=== PATIENT | female | born 1980 | race American Indian/Alaskan Native ===

== ENCOUNTER 2016-06-26 16:19 | Emergency (ER) | payer SELFPAY ==
[2016-06-26 16:42] VITALS: BP 107/74
[2016-06-26 18:49] LABS: Bacteria,Urine 1+ /HPF (Negative); Bilirubin,Urine NEG (Negative); Blood,Urine MOD (Negative); Ketones,Urine NEG (Negative); Leukocyte Esterase,Urine LG (Negative); Mucus,Urine FEW /HPF; Nitrite,Urine NEG (Negative); Urobilinogen,Urine < 2.0 mg/dL (<2.0)
[2016-06-26 18:53] LABS: WBC,Urine > 182.0 /HPF (0.0-6.0)
--- NOTE | 2016-06-26 20:00 | Emergency Department Report ---
ED Female HPI - General Chief complaint: Urogenital-Female Stated complaint: SOB/ABD PAIN/FLU SYMPTOMS Time Seen by Provider: 06/26/16 19:38 Source: patient Mode of arrival: Ambulatory Limitations: No Limitations - History of Present Illness Initial comments: Patient here reports that she's been having fever or chills 2 days. Complaining I sensitive to light and she has body ache all over. She is complaining of left lower abdominal pain on and off 3 days and burning at the end of urinating. Denies any blood in her urine. She said her urine has a smell. She is not presently having any pain in her lower abdomen but she said when she has pain is 5 out of 10 and it comes and goes and feels like pressure. She says she took some Advil prior to coming to the emergency room. Denies any nausea vomiting or diarrhea. Denies any back pain. She did not take her temperature she says she had chills and felt feverish. MD Complaint: dysuria, other (pressure to left lower quadrant abdomen) Onset/Timin -: days(s) Location: LLQ Radiation: non-radiating Severity: mild Severity scale (0 -10): 5 Consistency: intermittent Improves with: none Worsens with: urination Are you Now?: No Associated Symptoms: fever/chills, dysuria. denies: vaginal discharge, vaginal bleeding, abdominal pain, nausea/vomiting, headaches, loss of appetite, hematuria, shortness of breath, syncope, weakness - Related Data Sexually active: Yes Previous Rx's Medication Instructions Recorded Last Taken Type Nitrofurantoin [place]/M-Cryst 100 mg PO Q12HR #14 capsule 06/26/16 Unknown Rx [Macrobid CAP] Phenazopyridine [Pyridium] 100 mg PO TID PRN #9 tab 06/26/16 Unknown Rx Allergies Allergy/AdvReac Type Severity Reaction Status Date / Time No Known Allergies Allergy Unverified 06/26/16 16:44 ED Review of Systems ROS: Stated complaint: SOB/ABD PAIN/FLU SYMPTOMS Other details as noted in HPI Comment: All other systems reviewed and negative Constitutional: chills, fever ENT: denies: ear pain, throat pain, congestion Respiratory: no symptoms reported Cardiovascular: denies: chest pain, palpitations Gastrointestinal: abdominal pain. denies: nausea, vomiting, diarrhea, constipation, hematemesis Genitourinary: dysuria. denies: urgency, frequency, hematuria, discharge, abnormal menses Musculoskeletal: other (body aches). denies: back pain, arthralgia, myalgia Skin: denies: rash Neurological: denies: headache, weakness, numbness, paresthesias, confusion, abnormal gait, vertigo ED Past Medical Hx - Past Medical History Previous Medical History?: No - Surgical History Past Surgical History?: No - Family History Family history: hypertension - Social History Smoking Status: Current Every Day Smoker Substance Use Type: Alcohol - Medications Home Medications: Home Medications Medication Instructions Recorded Confirmed Last Taken Type Nitrofurantoin [place]/M-Cryst 100 mg PO Q12HR #14 capsule 06/26/16 Unknown Rx [Macrobid CAP] Phenazopyridine [Pyridium] 100 mg PO TID PRN #9 tab 06/26/16 Unknown Rx ED Physical Exam - General Limitations: No Limitations General appearance: alert, in no apparent distress - Head Head exam: Present: atraumatic, normocephalic, normal inspection - Eye Eye exam: Present: normal appearance, PERRL, EOMI. Absent: scleral icterus, conjunctival injection, periorbital swelling, periorbital tenderness Pupils: Present: normal accommodation - ENT ENT exam: Present: normal exam, normal orophraynx, mucous membranes moist, TM's normal bilaterally, normal external ear exam - Neck Neck exam: Present: normal inspection, full ROM. Absent: tenderness, lymphadenopathy - Respiratory Respiratory exam: Present: normal lung sounds bilaterally. Absent: respiratory distress, chest wall tenderness - Cardiovascular Cardiovascular Exam: Present: regular rate, normal rhythm, normal heart sounds - GI/Abdominal GI/Abdominal exam: Present: soft, normal bowel sounds, other (fullness palpated over her bladder. She reports pressure with palpation, also reports that she feels that she needs to urinate with palpation). Absent: distended, tenderness , guarding, rebound, rigid - Extremities Exam Extremities exam: Present: normal inspection, full ROM, normal capillary refill. Absent: tenderness, pedal edema, joint swelling - Back Exam Back exam: Present: normal inspection, full ROM. Absent: tenderness, CVA tenderness (R), CVA tenderness (L), muscle spasm, paraspinal tenderness, vertebral tenderness, rash noted - Neurological Exam Neurological exam: Present: alert, oriented X3, normal gait - Psychiatric Psychiatric exam: Present: normal affect, normal mood - Skin Skin exam: Present: warm, dry, intact, normal color ED Course Vital Signs 06/26/16 06/26/16 16:32 20:41 Temperature 98.2 F Pulse Rate 94 H Respiratory 17 20 Rate Blood Pressure 107/74 O2 Sat by Pulse 98 Oximetry - Reevaluation(s) Reevaluation #1: 06/26/16 21:06 Patient given Rocephin 1 g IM and Toradol 60 mg IM and emergency room and tolerated well without any adverse reaction. Reevaluation #2: 06/26/16 21:08 Patient tolerated apple juice 480 mg in emergency room without any nausea or vomiting. ED Medical Decision Making - Lab Data Lab Results 06/26/16 Range/Units 18:30 Urine Color Yellow (Yellow) Urine Turbidity Cloudy (Clear) Urine pH 5.0 (5.0-7.0) Ur Specific Al[place] 1.021 (1.003-1.030) Urine Protein 100 mg/dl (Negative) mg/dL Urine Glucose (UA) Neg (Negative) mg/dL Urine Ketones Neg (Negative) mg/dL Urine Blood Mod (Negative) Urine Nitrite Neg (Negative) Urine Bilirubin Neg (Negative) Urine Urobilinogen < 2.0 (<2.0) mg/dL Ur Leukocyte Esterase Lg (Negative) Urine WBC (Auto) > 182.0 H (0.0-6.0) /HPF Urine RBC (Auto) 42.0 (0.0-6.0) /HPF U Epithel Cells (Auto) 6.0 (0-13.0) /HPF Urine Bacteria (Auto) 1+ (Negative) /HPF Urine WBC Clumps 2+ /HPF Urine Mucus Few /HPF Urine HCG, Qual Negative (Negative) Urine culture pending - Medical Decision Making ED course: Discussed the patient that her urine came back negative for but positive for bacterial infection. I discussed diagnosis and treatment plan with her and she is in agreement. Understanding of diagnosis and treatment plan. She has acute cystitis with hematuria. Patient able tolerate oral hydration and emergency room without any nausea or vomiting. She was given Rocephin 1 g IV for urinary tract infection and Toradol 60 mg IM for pain. Patient discharged home with prescription for Macrobid and Pyridium and to follow up with her primary care physician in 3-5 days and if she does not have one and she needs to follow-up with [facility] Critical care attestation.: If time is entered above; I have spent that time in minutes in the direct care of this critically ill patient, excluding procedure time. ED Disposition Clinical Impression: Acute cystitis with hematuria Abdominal pain Qualifiers: Abdominal location: left lower quadrant Qualified Code(s): R10.32 - Left lower quadrant pain Disposition: DISCHARGED TO HOME OR SELFCARE Is pt being admited?: No Does the pt Need Aspirin: No Condition: Stable Instructions: Urinary Tract Infection in Women (ED), Abdominal Pain (ED) Additional Instructions: Please increase her fluid intake to 3 L of fluid per day. Take antibiotic as prescribed Primary care physician in 3-5 days and if he denies foreign then follow-up with outside Medical Center .call and Tuesday to schedule an appointment. Prescriptions: Nitrofurantoin [place]/M-Cryst [Macrobid CAP] 100 mg PO Q12HR #14 capsule Phenazopyridine [Pyridium] 100 mg PO TID PRN #9 tab PRN Reason: URINE PAIN Referrals: PRIMARY CARE,MD [Primary Care Provider] - 3-5 Days Forms: Work/School Release Form(ED)
[2016-06-26] MEDS ORDERED: ROCEPHIN IM STA (20:18)
[2016-06-26] MEDS ORDERED: TORADOL IM ONE (20:18)
[2016-06-26] MEDS ORDERED: XYLOCAINE 1% MPF 5 mL INFILTRATI ONE (20:18)
== END 2016-06-26 22:38 | disposition home or self-care (01) ==
LOC: ED 16:19
DX: N30.01 Acute cystitis with hematuria (principal); F17.200 Nicotine dependence, unspecified, uncomplicated
CPT/HCPCS: 81001; 81025; 87086; 96372; 99283; J0696; J1885; 87076; 87186

== ENCOUNTER 2016-10-25 12:50 | Emergency (ER) | payer SELFPAY ==
[2016-10-25 13:54] VITALS: BP 138/88
[2016-10-25] MEDS ORDERED: CLEOCIN IM ONE (13:56)
--- NOTE | 2016-10-25 13:58 | Emergency Department Report ---
ED ENT HPI - General Chief complaint: Dental/Oral Stated complaint: SWOLLEN JAW/ABSCESS TOOTH Time Seen by Provider: 10/25/16 13:51 Source: patient Mode of arrival: Ambulatory Limitations: No Limitations - History of Present Illness Initial comments: PT c/o left lower toothache since . PT states her jaw has been swollen since yesterday. PT states the tooth broke off 1.5 years ago and has broken off and she has had intermittent pain since. MD complaint: tooth pain Onset/Timin -: Gradual Location: tooth # (20) 1 - severe decay Severity scale (0 -10): 10 Quality: constant Consistency: constant Improves with: NSAID (Motrin ) Worsens with: eating Context- Dental: history of dental caries Associated Symptoms: gum swelling, toothache. denies: fever, pain with swallowing, sore throat - Related Data Previous Rx's Medication Instructions Recorded Last Taken Type Acetaminophen/Codeine [Tylenol #3] 1 tab PO Q6H PRN #12 tab 10/25/16 Unknown Rx Clindamycin [Clindamycin CAP] 300 mg PO Q8H #30 cap 10/25/16 Unknown Rx Allergies Allergy/AdvReac Type Severity Reaction Status Date / Time No Known Allergies Allergy Unverified 06/26/16 16:44 ED Dental HPI - General Stated complaint: SWOLLEN JAW/ABSCESS TOOTH Time Seen by Provider: 10/25/16 13:51 Source: patient Mode of arrival: Ambulatory Limitations: No Limitations - Related Data Previous Rx's Medication Instructions Recorded Last Taken Type Acetaminophen/Codeine [Tylenol #3] 1 tab PO Q6H PRN #12 tab 10/25/16 Unknown Rx Clindamycin [Clindamycin CAP] 300 mg PO Q8H #30 cap 10/25/16 Unknown Rx Allergies Allergy/AdvReac Type Severity Reaction Status Date / Time No Known Allergies Allergy Unverified 06/26/16 16:44 ED Review of Systems ROS: Stated complaint: SWOLLEN JAW/ABSCESS TOOTH Other details as noted in HPI Comment: All other systems reviewed and negative Constitutional: denies: chills, fever ENT: as per HPI Gastrointestinal: denies: nausea, vomiting Genitourinary: denies: abnormal menses (lmp 1 week ago ) Skin: denies: change in color Neurological: headache ED Past Medical Hx - Social History Smoking Status: Current Every Day Smoker Substance Use Type: Alcohol - Medications Home Medications: Home Medications Medication Instructions Recorded Confirmed Last Taken Type Acetaminophen/Codeine [Tylenol #3] 1 tab PO Q6H PRN #12 tab 10/25/16 Unknown Rx Clindamycin [Clindamycin CAP] 300 mg PO Q8H #30 cap 10/25/16 Unknown Rx ED Physical Exam - General Limitations: No Limitations General appearance: alert, in no apparent distress - Head Head exam: Present: atraumatic, normocephalic, other (small amount of swelling noted to L mandible ) - Eye Eye exam: Present: normal appearance, PERRL, EOMI. Absent: conjunctival injection - ENT ENT exam: Present: normal orophraynx, mucous membranes moist, normal external ear exam - Expanded ENT Exam Expanded Mouth exam: Absent: drooling, trismus Teeth exam: Present: dental caries (tooth 20 decayed to gum line), dental tenderness #, gingival enlargement (around tooth 20. no flucuant area palpable ), other (no signs of Jed's ) Throat exam: Positive: normal inspection. Negative: tonsillar erythema, tonsillomegaly, tonsillar exudate, R peritonsillar mass, L peritonsillar mass - Neck Neck exam: Present: normal inspection, full ROM, lymphadenopathy. Absent: tenderness - Respiratory Respiratory exam: Present: normal lung sounds bilaterally. Absent: respiratory distress - Cardiovascular Cardiovascular Exam: Present: regular rate, normal rhythm - Extremities Exam Extremities exam: Present: normal inspection, full ROM - Back Exam Back exam: Present: normal inspection, full ROM - Neurological Exam Neurological exam: Present: alert, oriented X3 - Psychiatric Psychiatric exam: Present: normal affect, normal mood - Skin Skin exam: Present: warm, dry, intact, normal color ED Course Vital Signs 10/25/16 13:52 Temperature 98.1 F Pulse Rate 58 L Respiratory 16 Rate Blood Pressure 138/88 O2 Sat by Pulse 98 Oximetry - Reevaluation(s) Reevaluation #1: 10/25/16 13:58 PT aware of plan of care. PT aware she will need to follow up with Dentist - Pulse Oximetry Interpretation Digit-Finger Initial Pulse Oximetry Readin Actions Taken: none ED Medical Decision Making - Differential Diagnosis toothache, dental decay, abscess Critical Care Time: No Critical care attestation.: If time is entered above; I have spent that time in minutes in the direct care of this critically ill patient, excluding procedure time. ED Disposition Clinical Impression: Dental abscess Disposition: TO HOME OR SELFCARE Is pt being admited?: No Does the pt Need Aspirin: No Condition: Stable Instructions: Dental Abscess (ED), Dental Caries (ED), Toothache (ED) Additional Instructions: Please refrain from smoking. Swish and spit with warm salt water at least 4 times a day Continue taking Motrin for your pain If you need to take Tylenol #3, do not drive or drink alcohol after taking Follow up with Dentist in 3-5 days Return to ED if worsening swelling, fevers, your are unable to open your mouth or have concerns Prescriptions: Acetaminophen/Codeine [Tylenol #3] 1 tab PO Q6H PRN #12 tab PRN Reason: Pain , Severe (7-10) Clindamycin [Clindamycin CAP] 300 mg PO Q8H #30 cap Referrals: JERAMY BARBER MD [Staff Physician] - 3-5 Days [facility] [Outside] - 3-5 Days [facility] [Outside] - 3-5 Days [facility] [Outside] - 3-5 Days Forms: Work/School Release Form(ED) Time of Disposition: 14:05
== END 2016-10-25 14:51 | disposition home or self-care (01) ==
LOC: ED 12:50
DX: K04.7 Periapical abscess without sinus (principal); F17.200 Nicotine dependence, unspecified, uncomplicated
CPT/HCPCS: 96372; 99281